=== PATIENT | female | born 1960 | race Caucasian/White ===

== ENCOUNTER 2019-04-05 11:44 | Day surgery (SDC) | payer MEDICARE ==
[~2019-04-05] VITALS: Ht 167.6 cm; Wt 113.2 kg
[~2019-04-05 11:44] MED LIST: ATOR20 PO; ATOR80 PO; BUPR150ERA PO; BUPR75 PO; CELE100 PO; CELE200 PO; CIPR500 PO; DILT30 PO; DILT60 PO; ERGO400 PO; FENO145 PO; FENO48 PO; FISH1000 PO; FLONASE ALLERG9.9 ML; GLIM2 PO; GLIM4 PO; HYDACE5 PO; INS70/30PN SC; INSULANPEN SC; LEVSOD100 PO; LISI20 PO; LISI5 PO; Lamisil250 MG PO; METF500 PO; METF850 PO; OXYACE5T PO; PHENA100 PO; PIOG15 PO; PROM25 PO; RXHYDACE PO; TRAM50 PO
--- NOTE | 2019-04-05 15:16 | NUR ---
04/05/19 1516 Chaya Dykes APOLOGIZED TO PT. ABOUT DR. SUNSHINE BEING BEHIND. PT. SITTING IN RECLINER WITH WARM PACK TO MIDDLE OF BACK & ROLLED TOWEL BEHIND HER NECK. PT.RATES HER PAIN A "4". PT. STATES "PROBABLY BEST POSITION I CAN BE IN."
== END 2019-04-05 16:47 | disposition home or self-care (01) ==
LOC: ORSCSDS 11:44
PROVIDERS: Internal Medicine Gastroenterology
PROC: 0DBK8ZX Excision of Ascending Colon, Via Natural or Artificial Opening Endoscopic, Diagnostic (ICD-10-PCS; principal; 2019-04-05 13:45)
PROC: 0DBN8ZX Excision of Sigmoid Colon, Via Natural or Artificial Opening Endoscopic, Diagnostic (ICD-10-PCS; principal; 2019-04-05 13:45)
PROC: 0DBL8ZX Excision of Transverse Colon, Via Natural or Artificial Opening Endoscopic, Diagnostic (ICD-10-PCS; principal; 2019-04-05 13:45)
DX: Z12.11 Encounter for screening for malignant neoplasm of colon (principal); D12.2 Benign neoplasm of ascending colon; D12.3 Benign neoplasm of transverse colon; K64.8 Other hemorrhoids; Z83.71 Family history of colonic polyps; I10 Essential (primary) hypertension; E11.9 Type 2 diabetes mellitus without complications; E78.00 Pure hypercholesterolemia, unspecified; E03.9 Hypothyroidism, unspecified; I25.10 Atherosclerotic heart disease of native coronary artery without angina pectoris; M79.7 Fibromyalgia; Z79.4 Long term (current) use of insulin; Z79.899 Other long term (current) drug therapy; Z87.891 Personal history of nicotine dependence
CPT/HCPCS: 82947; 88305; J2704; J7120

== ENCOUNTER → 2020-08-06 | Outpatient (CLI) | payer MEDICARE, OTHER ==
[2020-08-07 16:09] LABS: HPV 16 Negative (Negative); HPV 18 Negative (Negative); HPV OTHER HR TYPES Negative (Negative)
== END | disposition home or self-care (01) ==
LOC: PLD 15:51 → LAB SHORT 15:51
PROVIDERS: Obstetrics & Gynecology
DX: Z12.4 Encounter for screening for malignant neoplasm of cervix (principal)
CPT/HCPCS: 87624; G0123

== ENCOUNTER → 2021-01-28 | Outpatient (CLI) | payer MEDICARE, OTHER | END | disposition home or self-care (01) | LOC: LAB 14:15 → LAB SHORT 14:15 | DX: R30.0 Dysuria (principal) | CPT/HCPCS: 87086 ==

== ENCOUNTER → 2021-02-11 | Outpatient (CLI) | payer MEDICARE, OTHER | LOC: LAB SHORT 16:29 → LAB 16:29 | DX: N89.8 Other specified noninflammatory disorders of vagina (principal); Z88.5 Allergy status to narcotic agent; Z88.8 Allergy status to other drugs, medicaments and biological substances | CPT/HCPCS: 87070; 87147; 87205 ==

== ENCOUNTER → 2022-05-28 | Outpatient (CLI) | payer MEDICARE, OTHER | END | disposition home or self-care (01) | LOC: LAB SHORT 08:29 → PLD 08:29 | DX: L60.2 Onychogryphosis (principal); B35.1 Tinea unguium | CPT/HCPCS: 88305; 88312 ==

== ENCOUNTER 2024-05-23 08:50 | Day surgery (SDC) | payer MEDICARE, OTHER | END 2024-05-23 23:17 | disposition home or self-care (01) | LOC: WOUND 08:50 | DX: E11.621 Type 2 diabetes mellitus with foot ulcer (principal); L97.522 Non-pressure chronic ulcer of other part of left foot with fat layer exposed; L08.0 Pyoderma; E11.51 Type 2 diabetes mellitus with diabetic peripheral angiopathy without gangrene | CPT/HCPCS: G0463 ==

== ENCOUNTER 2024-05-30 01:13 | Day surgery (SDC) | payer MEDICARE, OTHER ==
[2024-05-30] MEDS ORDERED: Lidocaine HCl 4% Cream 5 GM ONE (11:55)
== END 2024-05-30 23:00 | disposition home or self-care (01) ==
LOC: WOUND 01:13
DX: L97.522 Non-pressure chronic ulcer of other part of left foot with fat layer exposed (principal); L08.0 Pyoderma; I73.9 Peripheral vascular disease, unspecified
CPT/HCPCS: A9270; G0463

== ENCOUNTER 2024-06-06 05:48 | Day surgery (SDC) | payer MEDICARE, OTHER ==
[2024-06-06] MEDS ORDERED: Lidocaine HCl 4% Cream 5 GM ONE (11:24)
== END 2024-06-06 23:00 | disposition home or self-care (01) ==
LOC: WOUND 05:48
DX: E11.621 Type 2 diabetes mellitus with foot ulcer (principal); L97.528 Non-pressure chronic ulcer of other part of left foot with other specified severity; E11.40 Type 2 diabetes mellitus with diabetic neuropathy, unspecified; E11.51 Type 2 diabetes mellitus with diabetic peripheral angiopathy without gangrene; L08.0 Pyoderma
CPT/HCPCS: A9270; G0463

== ENCOUNTER 2024-06-13 03:17 | Day surgery (SDC) | payer MEDICARE, OTHER | END 2024-06-13 23:00 | disposition home or self-care (01) | LOC: WOUND 03:17 | DX: E11.621 Type 2 diabetes mellitus with foot ulcer (principal); L97.521 Non-pressure chronic ulcer of other part of left foot limited to breakdown of skin; E11.40 Type 2 diabetes mellitus with diabetic neuropathy, unspecified; E11.51 Type 2 diabetes mellitus with diabetic peripheral angiopathy without gangrene; L08.0 Pyoderma | CPT/HCPCS: G0463 ==

== ENCOUNTER 2024-07-04 03:44 | Day surgery (SDC) | payer MEDICARE, OTHER ==
[2024-07-04] MEDS ORDERED: Lidocaine HCl 4% Cream 5 GM ONE (11:27)
== END 2024-07-04 23:00 | disposition home or self-care (01) ==
LOC: WOUND 03:44
DX: E11.621 Type 2 diabetes mellitus with foot ulcer (principal); L97.522 Non-pressure chronic ulcer of other part of left foot with fat layer exposed; E11.51 Type 2 diabetes mellitus with diabetic peripheral angiopathy without gangrene; L08.0 Pyoderma
CPT/HCPCS: A9270

== ENCOUNTER 2024-07-12 08:11 | Day surgery (SDC) | payer MEDICARE, OTHER | END 2024-07-12 23:00 | disposition home or self-care (01) | LOC: WOUND 08:11 | DX: E11.621 Type 2 diabetes mellitus with foot ulcer (principal); L97.522 Non-pressure chronic ulcer of other part of left foot with fat layer exposed; E11.51 Type 2 diabetes mellitus with diabetic peripheral angiopathy without gangrene; L08.0 Pyoderma; E11.40 Type 2 diabetes mellitus with diabetic neuropathy, unspecified | CPT/HCPCS: A6213; G0463 ==

== ENCOUNTER 2024-07-26 | Day surgery (SDC) | payer MEDICARE, OTHER ==
[2024-07-26] MEDS ORDERED: Lidocaine HCl 4% Cream 5 GM ONE (11:18)
== END 2024-07-26 23:00 | disposition home or self-care (01) ==
LOC: WOUND
DX: E11.621 Type 2 diabetes mellitus with foot ulcer (principal); L97.522 Non-pressure chronic ulcer of other part of left foot with fat layer exposed; L89.629 Pressure ulcer of left heel, unspecified stage; L08.0 Pyoderma; E11.51 Type 2 diabetes mellitus with diabetic peripheral angiopathy without gangrene; E11.42 Type 2 diabetes mellitus with diabetic polyneuropathy
CPT/HCPCS: A9270

== ENCOUNTER 2024-08-02 01:41 | Day surgery (SDC) | payer MEDICARE, OTHER | END 2024-08-02 23:00 | disposition home or self-care (01) | LOC: WOUND 01:41 | DX: E11.621 Type 2 diabetes mellitus with foot ulcer (principal); L97.522 Non-pressure chronic ulcer of other part of left foot with fat layer exposed; L97.402 Non-pressure chronic ulcer of unspecified heel and midfoot with fat layer exposed; E11.51 Type 2 diabetes mellitus with diabetic peripheral angiopathy without gangrene; E11.40 Type 2 diabetes mellitus with diabetic neuropathy, unspecified | CPT/HCPCS: G0463 ==

== ENCOUNTER 2024-08-09 09:18 | Day surgery (SDC) | payer MEDICARE, OTHER | END 2024-08-09 23:00 | disposition home or self-care (01) | LOC: WOUND 09:18 | DX: E11.621 Type 2 diabetes mellitus with foot ulcer (principal); L97.522 Non-pressure chronic ulcer of other part of left foot with fat layer exposed; E11.51 Type 2 diabetes mellitus with diabetic peripheral angiopathy without gangrene; E11.40 Type 2 diabetes mellitus with diabetic neuropathy, unspecified; L08.0 Pyoderma | CPT/HCPCS: 36415; 83036; G0463 ==

== ENCOUNTER 2024-08-24 01:30 | Day surgery (SDC) | payer MEDICARE, OTHER ==
[2024-08-24] MEDS ORDERED: Lidocaine HCl 4% Cream 5 GM ONE (09:00)
== END 2024-08-24 23:00 | disposition home or self-care (01) ==
LOC: WOUND 01:30
DX: E11.621 Type 2 diabetes mellitus with foot ulcer (principal); L97.522 Non-pressure chronic ulcer of other part of left foot with fat layer exposed; L08.0 Pyoderma; E11.51 Type 2 diabetes mellitus with diabetic peripheral angiopathy without gangrene; I35.0 Nonrheumatic aortic (valve) stenosis; I11.9 Hypertensive heart disease without heart failure; E78.5 Hyperlipidemia, unspecified; G47.33 Obstructive sleep apnea (adult) (pediatric); I77.9 Disorder of arteries and arterioles, unspecified
CPT/HCPCS: 93306; A9270; G0463

== ENCOUNTER 2024-08-29 01:20 | Day surgery (SDC) | payer MEDICARE, OTHER ==
[2024-08-29] MEDS ORDERED: Lidocaine HCl 4% Cream 5 GM ONE (09:23)
== END 2024-08-29 23:00 | disposition home or self-care (01) ==
LOC: WOUND 01:20
DX: E11.621 Type 2 diabetes mellitus with foot ulcer (principal); L97.522 Non-pressure chronic ulcer of other part of left foot with fat layer exposed; E11.51 Type 2 diabetes mellitus with diabetic peripheral angiopathy without gangrene; E11.40 Type 2 diabetes mellitus with diabetic neuropathy, unspecified; L08.0 Pyoderma
CPT/HCPCS: A9270

== ENCOUNTER 2024-09-08 04:11 | Day surgery (SDC) | payer MEDICARE, OTHER ==
[2024-09-08] MEDS ORDERED: Lidocaine HCl 4% Cream 5 GM ONE (11:18)
== END 2024-09-08 23:00 | disposition home or self-care (01) ==
LOC: WOUND 04:11
DX: E11.621 Type 2 diabetes mellitus with foot ulcer (principal); L97.522 Non-pressure chronic ulcer of other part of left foot with fat layer exposed; E11.40 Type 2 diabetes mellitus with diabetic neuropathy, unspecified; L08.0 Pyoderma; E11.51 Type 2 diabetes mellitus with diabetic peripheral angiopathy without gangrene
CPT/HCPCS: A9270

== ENCOUNTER 2024-09-14 01:44 | Day surgery (SDC) | payer MEDICARE, OTHER ==
[2024-09-14] MEDS ORDERED: Lidocaine HCl 4% Cream 5 GM ONE (10:54)
== END 2024-09-14 23:00 | disposition home or self-care (01) ==
LOC: WOUND 01:44
DX: E11.621 Type 2 diabetes mellitus with foot ulcer (principal); L97.522 Non-pressure chronic ulcer of other part of left foot with fat layer exposed; L08.0 Pyoderma; E11.51 Type 2 diabetes mellitus with diabetic peripheral angiopathy without gangrene; I35.0 Nonrheumatic aortic (valve) stenosis; I77.9 Disorder of arteries and arterioles, unspecified; E11.8 Type 2 diabetes mellitus with unspecified complications; I10 Essential (primary) hypertension; E78.5 Hyperlipidemia, unspecified; G47.33 Obstructive sleep apnea (adult) (pediatric)
CPT/HCPCS: 36415; 80053; 80061; 83880; 84439; 84443; A9270

== ENCOUNTER 2024-09-21 01:41 | Day surgery (SDC) | payer MEDICARE, OTHER | END 2024-09-21 23:00 | disposition home or self-care (01) | LOC: WOUND 01:41 | DX: E11.621 Type 2 diabetes mellitus with foot ulcer (principal); L97.521 Non-pressure chronic ulcer of other part of left foot limited to breakdown of skin; E11.51 Type 2 diabetes mellitus with diabetic peripheral angiopathy without gangrene; E11.40 Type 2 diabetes mellitus with diabetic neuropathy, unspecified; L08.0 Pyoderma | CPT/HCPCS: G0463 ==